=== PATIENT | female | born 1955 | race Caucasian/White ===

== ENCOUNTER → 2017-03-05 | Outpatient (CLI) | payer OTHER | LOC: FIMAGING 07:45 | PROVIDERS: ATTEND Internal Medicine | DX: Z12.31 Encounter for screening mammogram for malignant neoplasm of breast (principal); Z85.3 Personal history of malignant neoplasm of breast | CPT/HCPCS: G0202 ==

== ENCOUNTER → 2017-08-28 | Outpatient (CLI) | payer OTHER | LOC: FIMAGING 07:03 | PROVIDERS: ATTEND Orthopaedic Surgery | DX: S83.512D Sprain of anterior cruciate ligament of left knee, subsequent encounter (principal) ==